=== PATIENT | female | born 1980 | race Hispanic/Latino ===

== ENCOUNTER → 2023-09-28 | Outpatient (REF) | payer OTHER | LOC: MAMMO 08:51 | PROVIDERS: ATTEND Family Medicine | DX: Z12.31 Encounter for screening mammogram for malignant neoplasm of breast (principal) | CPT/HCPCS: 77067 ==

== ENCOUNTER 2025-07-12 16:11 | Inpatient (IN) | payer OTHER ==
[~2025-07-12] VITALS: Ht 167.6 cm; Wt 109.8 kg
[~2025-07-12 16:11] MED LIST: SEVOFLURANE INHAL SOLN 250 ML PEN BTL ONE
[2025-07-12 17:54] LABS: BASOPHILS % 0.5 % (0.0-1.0); EOSINOPHILS % 0.7 % (0.0-6.0); LYMPHOCYTES % 24.1 % (18.0-39.1); MONOCYTES % 7.7 % (4.4-11.3); NEUTROPHILS % 66.7 % (38.7-80.0); RED CELL DISTRIBUTION WIDTH 16.2 % (11.7-14.4)
[2025-07-12 18:06] LABS: INR 0.93
[2025-07-12 18:17] LABS: EST GLOMERULAR FILTRATION RATE 101 ML/MIN (>=60)
[2025-07-12] MEDS: ONDANSETRON HCL INJ 2MG/ML 2ML 2 MG/ML VIAL IV STA (18:23)
[2025-07-12] MEDS: SODIUM CHLORIDE 0.9% 1000ML 1,000 ML IV STA (18:25)
[2025-07-12] MEDS: KETOROLAC TROMETHAMINE 30 MG/ML VIAL IV STA (18:25)
[2025-07-12 18:57] LABS: LEUKOCYTE ESTERASE ,URINE NEGATIVE (NEGATIVE); PROTEIN,URINE DIPSTICK 1+ (NEGATIVE); URINE UROBILINOGEN 2 mg/dL (0.2 - 1)
[2025-07-12 19:09] LABS: WBC,URINE (MAN) 0-5 /HPF (0-5)
[2025-07-12] MEDS ORDERED: ONDANSETRON HCL INJ 2MG/ML 2ML 2 MG/ML VIAL IV PRN (20:30)
[2025-07-12] MEDS ORDERED: SODIUM CHLORIDE FLUSH 10 ML SYR INJ PRN (20:30)
[2025-07-12] MEDS ORDERED: Morphine 2mg Syringe 2 MG/ML SYR IV PRN (20:30)
[2025-07-12] MEDS: KETOROLAC TROMETHAMINE 30 MG/ML VIAL IV PRN (21:26)
[2025-07-12 22:00] VITALS: PULSE 65; RESP 17; TEMP 98
[2025-07-12] MEDS ORDERED: HYDRALAZINE HCL 20 MG/ML VIAL IV PRN (23:15)
[2025-07-12] MEDS ORDERED: BENZONATATE 100 MG CAP PO PRN (23:15)
[2025-07-12] MEDS ORDERED: DOCUSATE SODIUM 100 MG CAP PO PRN (23:15)
[2025-07-12] MEDS ORDERED: DIPHENHYDRAMINE HCL 25 MG CAP PO PRN (23:15)
[2025-07-12] MEDS ORDERED: DEXTROSE 50% SYRINGE 50 ML IV PRN (23:15)
[2025-07-12] MEDS ORDERED: POTASSIUM CHLORIDE 20 MEQ TAB CR PO PRN (23:15)
[2025-07-12] MEDS ORDERED: LIDOCAINE 4% PATCH TP PRN (23:15)
[2025-07-12] MEDS ORDERED: ALBUTEROL/IPRATROPIUM 3 ML NEB NEB PRN (23:15)
[2025-07-12] MEDS ORDERED: SIMETHICONE 80 MG CHEW PO PRN (23:15)
[2025-07-13] VITALS (8 sets, daily range): BP systolic 101–125; BP diastolic 49–81; PULSE 62–92; RESP 16–21; TEMP 97.9–99; O2SAT 97–100
[2025-07-13] MEDS ORDERED: IMITREX100 MG PO (01:56)
[2025-07-13] MEDS ORDERED: IRON325 M1 PO (02:07)
[2025-07-13 05:38] LABS: BASOPHILS % 0.4 % (0.0-1.0); EOSINOPHILS % 1.1 % (0.0-6.0); LYMPHOCYTES % 25.7 % (18.0-39.1); MONOCYTES % 8.2 % (4.4-11.3); NEUTROPHILS % 64.3 % (38.7-80.0); RED CELL DISTRIBUTION WIDTH 16.2 % (11.7-14.4)
[2025-07-13 06:20] LABS: EST GLOMERULAR FILTRATION RATE 116.0 ML/MIN (>=60)
[2025-07-13] MEDS: PANTOPRAZOLE SOD 40 MG TABEC PO SCH (10:46)
[2025-07-13] MEDS: SODIUM CHLORIDE 0.9% 1000ML 1,000 ML IV SCH (14:32)
[2025-07-13 15:51] LABS: EST GLOMERULAR FILTRATION RATE 111.0 ML/MIN (>=60)
[2025-07-13] MEDS: MELATONIN 5 MG TABLET PO PRN (20:58)
[2025-07-14 06:06] LABS: BASOPHILS % 0.4 % (0.0-1.0); EOSINOPHILS % 0.7 % (0.0-6.0); LYMPHOCYTES % 25.8 % (18.0-39.1); MONOCYTES % 12.2 % (4.4-11.3); NEUTROPHILS % 60.6 % (38.7-80.0); RED CELL DISTRIBUTION WIDTH 16.1 % (11.7-14.4)
[2025-07-14 06:34] LABS: EST GLOMERULAR FILTRATION RATE 114.0 ML/MIN (>=60)
[2025-07-14 08:00] VITALS: BP 102/49; PULSE 85; RESP 18; TEMP 98.3; O2SAT 99
[2025-07-14 08:02] VITALS: BP 115/65; PULSE 77; RESP 17; TEMP 97.9; O2SAT 98
[2025-07-14 11:30] VITALS: BP 111/70; PULSE 80; RESP 18; TEMP 97.8; O2SAT 98
[2025-07-14 15:56] VITALS: BP 115/64; PULSE 77; RESP 20; TEMP 98; O2SAT 100
[2025-07-14 20:00] VITALS: BP 130/74; PULSE 95; RESP 18; TEMP 99.6; O2SAT 96
[2025-07-14] MEDS: ACETAMINOPHEN 325 MG TAB PO PRN (20:33)
[2025-07-15] VITALS (10 sets, daily range): BP systolic 108–131; BP diastolic 68–81; PULSE 70–88; RESP 18–20; TEMP 97.8–98.5; O2SAT 96–100
[2025-07-15 05:36] LABS: BASOPHILS % 0.2 % (0.0-1.0); EOSINOPHILS % 1.3 % (0.0-6.0); LYMPHOCYTES % 34.9 % (18.0-39.1); MONOCYTES % 13.7 % (4.4-11.3); NEUTROPHILS % 49.7 % (38.7-80.0); RED CELL DISTRIBUTION WIDTH 16.2 % (11.7-14.4)
[2025-07-15 06:01] LABS: EST GLOMERULAR FILTRATION RATE 112.0 ML/MIN (>=60)
[2025-07-15] MEDS ORDERED: FENTANYL CITRATE/PF 100MCG/2 ML INJ ONE ×2 (17:16→18:43)
[2025-07-15] MEDS ORDERED: LIDOCAINE HCL 2% LOCAL INJ 5 ML SDV VIAL INJ ONE (17:16)
[2025-07-15] MEDS ORDERED: PROPOFOL IV EMULSION 10 MG/ML 20 ML VIAL ONE (17:16)
[2025-07-15] MEDS ORDERED: KETOROLAC TROMETHAMINE 30 MG/ML VIAL ONE ×2 (17:38→18:32)
[2025-07-15] MEDS ORDERED: ONDANSETRON HCL INJ 2MG/ML 2ML 2 MG/ML VIAL ONE ×2 (17:38→18:32)
[2025-07-15] MEDS ORDERED: DEXAMETHASONE SOD PHOS INJ 4 MG/ML SDV ONE ×2 (17:38→18:32)
[2025-07-15] MEDS ORDERED: METOCLOPRAMIDE HCL 10 MG/2ML VIAL ONE ×2 (17:38→18:32)
[2025-07-15] MEDS ORDERED: ACETAMINOPHEN/CODEINE 300MG - 30MG TAB PO PRN (18:30)
[2025-07-15] MEDS ORDERED: PHENAZOPYRIDINE HCL 100 MG TAB PO PRN (18:30)
[2025-07-16 03:07] VITALS: BP 144/79; PULSE 83; RESP 19; TEMP 97.9; O2SAT 99
[2025-07-16 05:42] LABS: BASOPHILS % 0.2 % (0.0-1.0); EOSINOPHILS % 0.0 % (0.0-6.0); LYMPHOCYTES % 12.5 % (18.0-39.1); MONOCYTES % 4.8 % (4.4-11.3); NEUTROPHILS % 82.1 % (38.7-80.0); RED CELL DISTRIBUTION WIDTH 16.0 % (11.7-14.4)
[2025-07-16 06:02] LABS: EST GLOMERULAR FILTRATION RATE 114.0 ML/MIN (>=60)
[2025-07-16] MEDS: SOLIFENACIN SUCCINATE 5 MG TAB PO SCH (08:43)
[2025-07-16 09:41] VITALS: BP 136/75; PULSE 67; RESP 18; TEMP 97.6; O2SAT 98
[2025-07-16 16:05] VITALS: BP 127/69; PULSE 78; RESP 18; TEMP 98.1; O2SAT 100
== END 2025-07-16 15:20 | disposition home or self-care (01) | DRG 661 ==
LOC: ER 18:05 → ERHOLD 20:19 → MED/SURG 23:11 → OBSVTOIN 07-14 09:28
PROVIDERS: ADMIT Internal Medicine; ATTEND Internal Medicine
PROC: BT141ZZ Fluoroscopy of Kidneys, Ureters and Bladder using Low Osmolar Contrast (ICD-10-PCS; 2025-07-15)
PROC: 0T768DZ Dilation of Right Ureter with Intraluminal Device, Via Natural or Artificial Opening Endoscopic (ICD-10-PCS; principal; 2025-07-15 17:33)
PROC: 0TF38ZZ Fragmentation in Right Kidney Pelvis, Via Natural or Artificial Opening Endoscopic (ICD-10-PCS; 2025-07-15 17:33)
DX: N13.6 Pyonephrosis (principal); B96.20 Unspecified Escherichia coli [E. coli] as the cause of diseases classified elsewhere; N13.9 Obstructive and reflux uropathy, unspecified; E66.9 Obesity, unspecified; Z68.39 Body mass index [BMI] 39.0-39.9, adult; N39.46 Mixed incontinence; R31.29 Other microscopic hematuria; K80.20 Calculus of gallbladder without cholecystitis without obstruction; E28.2 Polycystic ovarian syndrome; F17.200 Nicotine dependence, unspecified, uncomplicated
CPT/HCPCS: 36415; 71045; 74018; 74176; 74420; 76705; 80048; 80053; 81001; 83690; 83735; 83970; 84484; 84550; 84702; 85025; 85610; 87086; 87186; 94799; 99284; C1758; C1769; C2617; G0378; J0696; J1100; J1885; J2003; J2405; J2470; J2765; J7030

== ENCOUNTER → 2025-08-07 | Outpatient (REF) | payer OTHER ==
[~2025-08-07] MED LIST changes: +IMITREX100 MG PO; +IRON325 M1 PO; -SEVOFLURANE INHAL SOLN 250 ML PEN BTL ONE; +[UNRECOGNIZED DRUG - OTHER] PO
== END ==
LOC: MAMMO 13:59
PROVIDERS: ATTEND Family Medicine
DX: Z12.31 Encounter for screening mammogram for malignant neoplasm of breast (principal)
CPT/HCPCS: 77067